=== PATIENT | male | born 1965 | race Caucasian/White ===

== ENCOUNTER 2019-10-02 12:30 | Outpatient (CLI) | payer MEDICARE, SELFPAY ==
[2019-10-02 13:43] LABS: Alanine Aminotransferase 20 U/L (16-63); Alkaline Phosphatase 59 U/L (46-116); Anion Gap 10.1 mmol/L (7-16); Aspartate Amino Transferase 17 U/L (15-37); Bilirubin,Total 0.3 mg/dL (0.00-1.00); Blood Urea Nitrogen 10 mg/dL (7-18); Calcium 8.9 mg/dL (8.5-10.1); Carbon Dioxide 29 mmol/L (21-32); Chloride 104 mmol/L (98-108); Estimated Glomerular Filt Rate > 60; Glucose 106 mg/dL (70-99); Magnesium 2.1 mg/dL (1.8-2.4); Osmolality Calculated 287 mOsm/kg (285-295); Potassium 4.1 mmol/L (3.5-5.1); Sodium 139 mmol/L (136-145); Total Protein 7.1 g/dL (6.4-8.2)
[2019-10-05 11:07] LABS: Vitamin D 25 Hydroxy 30 ng/mL (30-100)
== END 2019-10-02 12:31 | disposition home or self-care (01) ==
PROVIDERS: PCP Nurse Practitioner Family; Visit Provider Nurse Practitioner Family
DX: M79.604 Pain in right leg (principal); M79.605 Pain in left leg; Z79.899 Other long term (current) drug therapy
CPT/HCPCS: 36415; 80053; 82306; 83735

== ENCOUNTER 2020-05-22 09:23 | Outpatient (CLI) | payer MEDICARE, SELFPAY ==
[2020-05-22 10:50] LABS: SARS-CoV-2 RNA PCR Negative (Negative)
== END 2020-05-22 09:24 | disposition home or self-care (01) ==
LOC: CHSLAB 09:26
PROVIDERS: PCP Nurse Practitioner Family; Visit Provider Nurse Practitioner Family
DX: Z20.822 Contact with and (suspected) exposure to COVID-19 (principal)
CPT/HCPCS: C9803; U0003; U0005

== ENCOUNTER 2021-02-22 10:09 | Outpatient (CLI) | payer MEDICARE, SELFPAY ==
[2021-02-22 11:12] LABS: Influenza A QL RT-PCR Negative (Negative); Influenza B QL RT-PCR Negative (Negative); SARS-CoV-2 RNA PCR Negative (Negative)
== END 2021-02-22 10:10 | disposition home or self-care (01) ==
PROVIDERS: PCP Nurse Practitioner Family; Visit Provider Nurse Practitioner Family
DX: R52 Pain, unspecified (principal); Z20.822 Contact with and (suspected) exposure to COVID-19
CPT/HCPCS: 87502; C9803; U0003; U0005

== ENCOUNTER 2021-04-26 15:45 | Emergency (ER) | payer MEDICARE, MEDICAID, SELFPAY ==
[2021-04-26 16:06] VITALS: BP 178/93; PULSE 91; RESP 20; TEMP 36.2; O2SAT 96
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
[2021-04-26] MEDS: KETOROLAC (*BKC) 60 MG/2 ML VIAL IM (16:25)
[2021-04-26] MEDS: ORPHENADRINE CITRATE 100 MG TABLET.ER PO (16:25)
[2021-04-26 16:53] VITALS: BP 120/73; PULSE 85; RESP 20; TEMP 36.6; O2SAT 93
== END 2021-04-26 16:57 | disposition home or self-care (01) ==
PROVIDERS: Emergency Provider Emergency Medicine; PCP Nurse Practitioner Family
DX: M54.32 Sciatica, left side (principal)
CPT/HCPCS: 96372; 99283; A9270; J1885

== ENCOUNTER 2021-04-28 12:03 | Outpatient (CLI) | payer MEDICARE, MEDICAID, SELFPAY ==
--- NOTE | ~2021-04-28 | XR_ITS ---
XR lumbar spine 2-3V 04/28/2021 12:22 Indication: Low back pain Procedure: 3 views lumbar spine Comparison: 11/11/2010 Findings: Vertebral body heights are maintained. Normal lumbar lordosis. No fracture, subluxation or dislocation. Sacral foramen are symmetric. Pedicles intact. No evidence for spondylolisthesis. There is a right total hip arthroplasty. There are right renal stones. There is mild lower lumbar facet hyp ertrophy. Mild disc narrowing at L5-S1. Impression: 1: Mild lumbar spondylosis. Reviewed, dictated and finalized at location A. BW ARCHITECT Impression: 1: Mild lumbar spondylosis.
== END 2021-04-28 12:04 | disposition home or self-care (01) ==
PROVIDERS: PCP Nurse Practitioner Family; Visit Provider Nurse Practitioner Family
DX: M54.32 Sciatica, left side (principal)
CPT/HCPCS: 72100

== ENCOUNTER 2021-05-04 07:16 | Outpatient (CLI) | payer MEDICARE, MEDICAID, SELFPAY ==
--- NOTE | ~2021-05-04 | MR_ITS ---
. EXAMINATION: MR lumbar spine wo con DATE: 05/04/2021 08:01 INDICATION: Left-sided sciatica. TECHNIQUE: Magnetic resonance imaging (MRI) of the lumbar spine was performed without intravenous con trast. Sequences included sagittal T2-weighted FSE, sagittal T2-weighted FS FSE, sagittal T1-weighted FSE, and axial T2-weighted FSE. COMPARISON: Lumbar spine radiographs 04/28/2021 FINDINGS: Bone alignment is normal. There is mild chronic anterior wedging of T11 and T12 vertebral b odies associated with Schmorl's nodes. There is mildly decreased disc height at T11-T12 and T12-L1. T he distal spinal cord signal intensity is normal. The conus medullaris is at T12-L1. The following di sc levels are specifically discussed: L1-L2: The disc does not extend beyond the endplate margin. There is mild bilateral facet joint osteo arthritis. There is no neural foraminal stenosis. There is no central canal stenosis. L2-L3: The disc does not extend beyond the endplate margin. There is mild bilateral facet joint osteo arthritis. There is no neural foraminal stenosis. There is no central canal stenosis. L3-L4: The disc is mildly bulging. There is severe bilateral facet joint osteoarthritis. There is mil d bilateral neural foraminal stenosis. There is no central canal stenosis. L4-L5: The disc does not extend beyond the endplate margin. There is moderate right and mild left fac et joint osteoarthritis. There is no neural foraminal stenosis. There is no central canal stenosis. L5-S1: The disc is bulging with superimposed left central extrusion that enters mass effect on left S 1 nerve root. There is moderate bilateral facet joint osteoarthritis. There is mild bilateral neural foraminal stenosis. There is mild central canal stenosis. There is moderate stenosis of left lateral recess. IMPRESSION: 1. Extrusion at L5-S1 with mass effect on left S1 nerve root. Otherwise mild lumbar spondylosis. Reviewed, dictated and finalized at location A. T OF [employer] SUPERVISOR IMPRESSION: 1. Extrusion at L5-S1 with mass effect on left S1 nerve root. Otherwise mild sandhya mbar spondylosis.
== END 2021-05-04 07:17 | disposition home or self-care (01) ==
LOC: CHSIMG 07:19
PROVIDERS: PCP Nurse Practitioner Family; Visit Provider Nurse Practitioner Family
DX: M54.32 Sciatica, left side (principal); M79.604 Pain in right leg; M79.605 Pain in left leg; M54.50 Low back pain, unspecified
CPT/HCPCS: 72148

== ENCOUNTER 2022-07-16 14:23 | Emergency (ER) | payer MEDICARE, MEDICAID, SELFPAY ==
[2022-07-16] VITALS (56 sets, daily range): BP systolic 117–158; BP diastolic 69–113; PULSE 65–98; RESP 6–28; TEMP 36.7–37.2; O2SAT 95–100
--- NOTE | ~2022-07-16 | XR_ITS ---
EXAMINATION: XR chest 1V portable Exam Date/Time: 07/16/2022 15:04 CDT HISTORY: BILAT CP X3 MONTHS WORSENING TODAY PAIN RADIATES TO LEFT ARM Comparison: 04/10/2018. RESULT: Lines, tubes, and devices: None. Lungs and pleura: Clear. Cardiomediastinal silhouette: Stable. Other: No acute osseous or upper abdominal finding. IMPRESSION: No acute cardiopulmonary process. Reviewed, dictated and finalized at location K.
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
--- NOTE | 2022-07-16 14:28 | ECG_ITS ---
Measurements Intervals [place] Rate: 77 P: 107 MO: 155 QRS: 121 QRSD: 92 T: 109 QT: 380 QTc: 432 Interpretive Statements SINUS RHYTHM ARM LEADS REVERSED INCOMPLETE RIGHT BUNDLE BRANCH BLOCK PEAKED T WAVES- CONSIDER HYPERKALEMIA BASELINE ARTIFACT- I, II, AVR, V1-V2 ABNORMAL ECG COMPARED TO ECG 07/16/2022 14:34:10 PEAKED T WAVES NOW PRESENT ST-T WAVE ABNORMALITY NO LONGER PRESENT Electronically Signed On 07-16-2022 17:56:31 CDT by Brody Virgen D.O.
[2022-07-16] MEDS: ASPIRIN 81 MG CHEWABLE TABLET 324 MG PO (14:36)
[2022-07-16] MEDS: METOPROLOL TARTRATE INJ 5 MG/5 ML VIAL IV PUSH (14:36)
[2022-07-16 14:42] LABS: Basophils Absolute Auto 0.05 K/mm3 (0.00-0.10); Basophils Percent Auto 0.4 % (0.0-1.0); Eosinophils Absolute Auto 0.23 K/mm3 (0.02-0.50); Eosinophils Percent Auto 1.7 % (1.0-6.0); Hematocrit 42.1 % (40.0-54.0); Hemoglobin 14.6 g/dL (14.0-18.0); Immature Granulocyte Absolute 0.06 K/mm3 (0.00-0.00); Immature Granulocyte Percent A 0.4 % (0.0-0.0); Lymphocytes Absolute Auto 2.97 K/mm3 (1.10-4.50); Lymphocytes Percent Auto 21.3 % (18.0-42.0); Mean Corpuscular HGB Conc 34.7 g/dL (32.0-36.0); Mean Corpuscular Hemoglobin 36.5 pg (27.0-31.0); Mean Corpuscular Volume 105.3 fL (78.0-102.0); Mean Platelet Volume 10.5 fl (8.7-11.0); Monocytes Absolute Auto 0.97 K/mm3 (0.10-0.90); Neutrophils Absolute Auto 9.7 K/mm3 (1.7-7.2); Neutrophils Percent Auto 69.2 % (50.0-70.0); Platelet Count Result 167 K/mm3 (150-420); Red Cell Distribution Width 12.6 % (11.6-14.4); White Blood Count 13.9 K/mm3 (4.8-10.8)
[2022-07-16 14:56] LABS: INR 0.9; Partial Thromboplastin Time 27.2 SEC (23.90-30.70); Prothrombin Time 10.1 Seconds (9.50-12.10)
--- NOTE | 2022-07-16 14:56 | PC.NURSE ---
patient arrived, oxygen applied, saline lock established
[2022-07-16 15:03] LABS: Lactic Acid Reflex 1.6 mmol/L (0.4-2.0)
[2022-07-16 15:04] LABS: Alanine Aminotransferase 21 U/L (16-63); Albumin Level 3.9 g/dL (3.4-5.0); Alkaline Phosphatase 48 U/L (46-116); Anion Gap 9 mmol/L (8-16); Aspartate Amino Transferase 13 U/L (15-37); Bilirubin,Total 0.2 mg/dL (0.00-1.00); Blood Urea Nitrogen 19 mg/dL (7-18); Calcium 8.9 mg/dL (8.5-10.1); Carbon Dioxide 28 mmol/L (21-32); Chloride 104 mmol/L (98-108); Creatine Kinase 76 U/L (39-308); Estimated CRCL calculation 56 ml/min; Estimated Glomerular Filt Rate 57; Glucose 108 mg/dL (70-99); NT Pro B Type Natriuretic Pept 1462 pg/mL (0-125); Osmolality Calculated 295 mOsm/kg (285-295); Sodium 141 mmol/L (136-145); Total Protein 6.8 g/dL (6.4-8.2); Troponin I 29.3 ng/L (0.00-60.4)
[2022-07-16 15:14] LABS: D Dimer 0.41 mg/L (0.19-0.50)
[2022-07-16 15:24] LABS: Influenza A QL RT-PCR Negative (Negative); Influenza B QL RT-PCR Negative (Negative); RSV RNA, RT-PCR Negative (Negative); SARS-CoV-2 RNA PCR Negative (Negative)
[2022-07-16 16:30] LABS: Appearance Urine Clear (Clear); Bilirubin Urine Negative (Negative); Blood Urine Negative (Negative); Color Urine Light Yellow (Yellow); Glucose Urine UA Negative (Negative); Ketones Urine Negative (Negative); Leukocyte Esterase Ur Negative LEU/UL (Negative); Nitrate Urine Negative (Negative); Protein Urine Negative (Negative); Specific Grav Ur <= 1.005 (1.010-1.020); Urobilinogen Urine 0.2 mg/dL (0.2-1.0)
[2022-07-16 16:34] LABS: Add Urine Microscopic? NO
--- NOTE | 2022-07-16 17:40 | ECG_ITS ---
Measurements Intervals [place] Rate: 93 P: 73 AK: 149 QRS: 66 QRSD: 97 T: 81 QT: 338 QTc: 421 Interpretive Statements SINUS RHYTHM FREQUENT VENTRICULAR PREMATURE COMPLEXES POSSIBLE LEFT ATRIAL ENLARGEMENT INCOMPLETE RIGHT BUNDLE BRANCH BLOCK ST-T WAVE ABNORMALITY IN ANTEROLAT/INF LEADS- CONSIDER ISCHEMIA BASELINE ARTIFACT- I, II, III, AVR, AVL, AVF ABNORMAL ECG NO PREVIOUS ECG AVAILABLE FOR COMPARISON Electronically Signed On 07-16-2022 17:54:35 CDT by Brody Virgen D.O.
[2022-07-16 17:55] LABS: Troponin I 237.7 ng/L (0.00-60.4)
[2022-07-16] MEDS: HEPARIN SOD/D5W 100 UNITS/ML 25,000 UNITS/250 ML BAG 8 UNITS IV CONT (18:33)
[2022-07-16] MEDS: HEPARIN SODIUM 5,000 UNITS/ML VIAL 4000 UNITS IV PUSH (18:33)
[2022-07-16 21:13] LABS: Troponin I 315.5 ng/L (0.00-60.4)
--- NOTE | 2022-07-16 21:23 | PC.NURSE ---
pt left with heparin drip infusing
== END 2022-07-16 21:24 | disposition short-term general hospital (02) ==
PROVIDERS: Emergency Provider Internal Medicine Critical Care Medicine; PCP Family Medicine
DX: I21.4 Non-ST elevation (NSTEMI) myocardial infarction (principal); N28.9 Disorder of kidney and ureter, unspecified; R06.02 Shortness of breath; E78.5 Hyperlipidemia, unspecified; J44.9 Chronic obstructive pulmonary disease, unspecified; Z21 Asymptomatic human immunodeficiency virus [HIV] infection status; Z79.899 Other long term (current) drug therapy; Z79.51 Long term (current) use of inhaled steroids; F32.A Depression, unspecified; Z87.891 Personal history of nicotine dependence; Z87.81 Personal history of (healed) traumatic fracture
CPT/HCPCS: 36415; 71045; 80053; 81003; 82550; 83605; 83880; 84484; 85025; 85380; 85610; 85730; 87637; 93005; 96365; 96366; 96375; 99285; A9270; J1644

== ENCOUNTER 2022-07-16 22:05 | Inpatient (IN) | payer MEDICARE, MEDICAID, SELFPAY ==
--- NOTE | 2022-07-16 21:55 | ADMGEN ---
This patient, Lilia Renee, was admitted to IMU Room 211-01. Patient/family oriented to hospital policies and general routines including ID bracelet, bed and alarms, visiting hours, pain management, procedures, bathroom and other care routines, personal items, smoking policy, room service/diet, and visiting hours. Information on how to activate the Rapid Response Team has been discussed. Patient/Family are encouraged to report perceived risks to care and to ask questions if they do not understand what they are told or what they should do.
[2022-07-16 22:05] VITALS: BP 156/76; PULSE 77; RESP 20; TEMP 36.3; O2SAT 100
[2022-07-16 22:23] VITALS: PULSE 82
[2022-07-16 22:35] VITALS: BMI 22.4
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
[2022-07-16] MEDS: MIRTAZAPINE 30 MG TABLET PO (23:35)
[2022-07-16] MEDS: DULoxetine HCL 60 MG CAPSULE.DR PO (23:35)
[2022-07-16] MEDS: ROSUVASTATIN 10 MG TABLET 20 MG PO (23:36)
[2022-07-16] MEDS: QUEtiapine FUMARATE 100 MG TABLET PO (23:36)
[2022-07-16] MEDS: HEPARIN SOD/D5W 100 UNITS/ML 25,000 UNITS/250 ML BAG 8 UNITS IV CONT (23:39)
[2022-07-16] MEDS: ALPRAZolam (*CRX) 0.5 MG TABLET 1 MG PO (23:39)
[2022-07-16 23:56] LABS: Troponin I 0.232 ng/mL (0.000-0.034)
[2022-07-17] VITALS (17 sets, daily range): BP systolic 121–144; BP diastolic 71–78; PULSE 64–91; RESP 16–20; TEMP 36.1–36.8; O2SAT 96–100
[2022-07-17 01:15] LABS: Basophils Percent Auto 0.4 % (0.2-1.2); Eosinophils Absolute Auto 0.1 K/mm3 (0-0.3); Eosinophils Percent Auto 1.3 % (0-4.4); Hematocrit 42.3 % (42.0-52.0); Hemoglobin 14.5 g/dL (14.0-18.0); Immature Granulocyte Absolute 0.04 K/mm3 (0.00-0.031); Immature Granulocyte Percent A 0.4 % (0-0.5); Lymphocytes Absolute Auto 1.93 K/mm3 (0.9-3.2); Lymphocytes Percent Auto 21.7 % (18.3-44.2); Mean Corpuscular HGB Conc 34.3 g/dl (32-36); Mean Platelet Volume 10.1 fl (7.4-10.4); Monocytes Absolute Auto 0.4 K/mm3 (0.1-0.6); Monocytes Percent Auto 4.6 % (2.6-8.5); Neutrophils Absolute Auto 6.4 K/mm3 (1.3-6.7); Neutrophils Percent Auto 71.6 % (45.5-73.1); Platelet Count Result 151 k/mm3 (150-375); Red Blood Count 4.03 M/mm3 (4.6-6.20); Red Cell Distribution Width 12.9 % (11.5-14.5); White Blood Count 8.9 K/mm3 (4.5-10.0)
[2022-07-17 01:27] LABS: INR 0.9; Prothrombin Time 12.7 Seconds (11.1-14.7)
[2022-07-17 01:28] LABS: Partial Thromboplastin Time 52.1 SECONDS (22.3-36.8)
[2022-07-17] MEDS: HEPARIN SODIUM 5,000 UNITS/ML VIAL 4000 UNITS IV PUSH (01:43)
[2022-07-17 02:39] LABS: Folic Acid 13.8 ng/mL (2.76->20)
[2022-07-17 07:44] LABS: Basophils Percent Auto 0.5 % (0.2-1.2); Eosinophils Absolute Auto 0.2 K/mm3 (0-0.3); Eosinophils Percent Auto 2.8 % (0-4.4); Hematocrit 42.7 % (42.0-52.0); Hemoglobin 14.6 g/dL (14.0-18.0); Immature Granulocyte Absolute 0.03 K/mm3 (0.00-0.031); Immature Granulocyte Percent A 0.4 % (0-0.5); Lymphocytes Absolute Auto 2.56 K/mm3 (0.9-3.2); Lymphocytes Percent Auto 32.2 % (18.3-44.2); Mean Corpuscular HGB Conc 34.2 g/dl (32-36); Mean Corpuscular Hemoglobin 36.4 pg (26-34); Mean Corpuscular Volume 106.5 fl (80-100); Mean Platelet Volume 9.8 fl (7.4-10.4); Monocytes Absolute Auto 0.6 K/mm3 (0.1-0.6); Monocytes Percent Auto 7.3 % (2.6-8.5); Neutrophils Absolute Auto 4.5 K/mm3 (1.3-6.7); Neutrophils Percent Auto 56.8 % (45.5-73.1); Platelet Count Result 147 k/mm3 (150-375); Red Blood Count 4.01 M/mm3 (4.6-6.20)
[2022-07-17 07:55] LABS: Alanine Aminotransferase 18 U/L (6-50); Albumin Level 3.9 g/dL (3.5-5.1); Alkaline Phosphatase 40 U/L (38-126); Anion Gap 1 mmol/L (8-16); Aspartate Amino Transferase 22 U/L (17-59); Bilirubin,Total 0.5 mg/dL (0.2-1.3); Blood Urea Nitrogen 15 mg/dL (9-20); Calcium 8.5 mg/dL (8.4-10.2); Carbon Dioxide 31 mmol/L (22-30); Chloride 108 mmol/L (98-107); Cholesterol 137 mg/dL (0-200); Estimated CRCL calculation 75 ml/min; Estimated Glomerular Filt Rate > 60; Glucose 101 mg/dL (65-110); HDL Direct 44 mg/dL; Magnesium 2.2 mg/dL (1.6-2.3); Potassium 3.9 mmol/L (3.4-5.0); Sodium 140 mmol/L (137-145); Triglycerides 74 mg/dL (<150)
[2022-07-17 08:05] LABS: LDL Cholesterol Direct 79 mg/dL
[2022-07-17 08:12] LABS: Partial Thromboplastin Time 172.1 SECONDS (22.3-36.8)
[2022-07-17] MEDS: METOPROLOL TARTRATE 25 MG TABLET PO ×2 (09:59→20:33)
[2022-07-17] MEDS: MULTIVITAMINS /C LUTEIN (CENTRUM SILVER) TABLET *BKC 1 TAB PO (10:00)
[2022-07-17] MEDS: ACETAMINOPHEN 325 MG TABLET 650 MG PO (10:00)
[2022-07-17] MEDS: DULoxetine HCL 60 MG CAPSULE.DR PO ×2 (10:00→16:46)
[2022-07-17] MEDS: QUEtiapine FUMARATE 100 MG TABLET PO ×2 (10:01→16:46)
[2022-07-17] MEDS: ALPRAZolam (*CRX) 0.5 MG TABLET 1 MG PO ×4 (10:01→20:33)
[2022-07-17] MEDS: ASPIRIN 81 MG ENTERIC TABLET PO (10:02)
--- NOTE | 2022-07-17 11:19 | ECG_ITS ---
Measurements Intervals [place] Rate: 71 P: 77 HI: 153 QRS: 63 QRSD: 91 T: 62 QT: 388 QTc: 422 Interpretive Statements SINUS RHYTHM POSSIBLE LEFT ATRIAL ENLARGEMENT RSR' IN V1 OR V2, PROBABLY NORMAL VARIANT BORDERLINE ECG COMPARED TO ECG 07/16/2022 17:39:19 NO SIGNIFICANT CHANGES Electronically Signed On 07-17-2022 21:56:54 CDT by Brody Virgen D.O.
--- NOTE | 2022-07-17 11:21 | PM.CNCAR ---
Assessment and Plan Assessment and plan (1) Non-ST elevation [place] (NSTEMI): Code(s): I21.4 - Non-ST elevation (NSTEMI) myocardial infarction Status: Acute Assessment and Plan: Symptoms are consistent with a non ST elevation myocardial infarction. EKG is concerning as he has inferior and anterolateral ST segment depression. He is pain-free at present however and plan will be for cardiac catheterization tomorrow. I did talk to him about the coronary angiogram and he verbalized understanding and is agreeable. Will be kept NPO after midnight. Will continue heparin drip. Continue metoprolol 25 mg p.o. b.i.d.. Continue rosuvastatin, aspirin. Nitroglycerin 0.4 mg sublingual p.r.n. chest pain will be added. Also will add losartan 25 mg p.o. daily as he does have elevated blood pressure present also. Renal function has improved. Further workup recommendation will be dependent on results of the angiogram. 2D echocardiogram Doppler is ordered also. Will also order an EKG now as well as repeat troponin (2) Dyslipidemia: Code(s): E78.5 - Hyperlipidemia, unspecified Status: Acute Assessment and Plan: Continue statin (3) Human immunodeficiency virus: Onset Date: 2003 Code(s): B20 - Human immunodeficiency virus [HIV] disease Status: Acute Assessment and Plan: Followed at [facility] (4) Chronic obstructive pulmonary disease: Code(s): J44.9 - Chronic obstructive pulmonary disease, unspecified Status: Acute Assessment and Plan: Related to tobacco use (5) Nicotine dependence: Code(s): F17.200 - Nicotine dependence, unspecified, uncomplicated Status: Chronic Assessment and Plan: Smoking cessation counseling performed (6) Renal insufficiency: Code(s): N28.9 - Disorder of kidney and ureter, unspecified Status: Acute Assessment and Plan: Normalized creatinine today History of Present Illness History of Present Illness Consult date/time: 07/17/22 11:21 Requesting physician: Mariola Muñiz PA-C Reason For Visit: NSTEMI Narrative: Date of service 07/17/2022 Reason consultation non-STEMI Requesting provider: Mariola Muñiz History patient is a 56-year-old male who does not have known cardiac history. He does have COPD, hyperlipidemia, HIV, anxiety depression as well as tobacco use. He has been having some neck pain off and on since April. It has become more severe as of late. Yesterday however he started to have some anterior chest pain associated with the neck pain. His symptoms were associated with shortness of breath and some diaphoresis. He did have some arm numbness and tingling also. His symptoms lasted about 1-2 hours and he went to the emergency department and [place]. Initial troponins were elevated and he was transferred to [facility] further workup and evaluation. He was started on heparin drip. He no longer is having any chest pain. He denies any recent syncope, presyncope, paroxysmal nocturnal dyspnea, orthopnea, edema palpitations. No unusual shortness of breath at this point. Review of Systems Review of Systems: All systems reviewed & are unremarkable except as noted in HPI and below Constitutional: Constitutional: Denies body ache(s) Eyes: Eyes: Denies blurry vision ENT: Reports Normal hearing present Cardiovascular: Cardiovascular: Reports chest pain Respiratory: Respiratory: Denies chest congestion Gastrointestinal: Gastrointestinal: Denies abdominal pain Genitourinary: Genitourinary: Denies hematuria Musculoskeletal: Musculoskeletal: Denies back pain Integumentary/Breasts: Skin/Breast: Denies erythema and Denies skin pain Neurologic: Denies abnormal gait Psychiatric: Psychiatric: Reports anxiety and Reports depression Endocrine: Endocrine: Denies excessive sweating Hematologic/Lymphatic: Hematologic/Lymphatic: Denies easy bleeding Allergic/Immunologic: Allerg
--- NOTE | 2022-07-17 12:14 | PM.IMPN ---
Progress Note: A&P Assessment and Plan (1) Non-ST elevation NV (NSTEMI): Code(s): I21.4 - Non-ST elevation (NSTEMI) myocardial infarction Status: Acute Assessment and Plan: Initial troponin was negative but has trended upwards. EKG at outside facility was read as sinus rhythm with PVCs, incomplete right bundle-branch block, and T T-wave abnormalities in anterolateral/inferior leads. He was given aspirin 324 mg p.o., IV metoprolol, and he has been started on heparin drip. Dr. Wallace was consulted by the outside ED physician and his input is appreciated. (2) Renal insufficiency: Code(s): N28.9 - Disorder of kidney and ureter, unspecified Status: Acute Assessment and Plan: BUN and creatinine are slightly elevated from baseline. Hold ibuprofen and meloxicam. (3) Dyslipidemia: Code(s): E78.5 - Hyperlipidemia, unspecified Status: Acute Assessment and Plan: Continue rosuvastatin. (4) Human immunodeficiency virus: Onset Date: 2003 Code(s): B20 - Human immunodeficiency virus [HIV] disease Status: Acute Assessment and Plan: Patient may take Genvoya from home. (5) Depression with anxiety: Code(s): F41.8 - Other specified anxiety disorders Status: Acute Assessment and Plan: Continue quetiapine, duloxetine, and alprazolam. (6) Chronic obstructive pulmonary disease: Code(s): J44.9 - Chronic obstructive pulmonary disease, unspecified Status: Acute Assessment and Plan: No evidence of acute exacerbation. Rescue inhaler available if needed. (7) Nicotine dependence: Code(s): F17.200 - Nicotine dependence, unspecified, uncomplicated Status: Chronic Assessment and Plan: Smoking cessation is encouraged and was discussed. He declines the need for nicotine patch. Plan 07/17/2022:Patient with COPD hypertension hyperlipidemia anxiety depression HIV history of kidney stones presented with non ST-elevation NV. associated chest pain radiated to the neck and jaw. Stress test done 2 days ago however has not received the results yet. Initial troponin was negative however then subsequent levels trended up. Aspirin 325 mg metoprolol and heparin drip was started. EKG with ST depression in anterolateral and inferior leads. Plan for cardiac catheterization in a.m.. Hypertension controlled with losartan added to metoprolol. Continue rosuvastatin check LDL. [facility]s [facility] disease. Smoking cessation emphasized.. Chest x-ray with no acute cardiopulmonary disease. Subjective Date/time seen: 07/17/22 12:14 Interval history: Patient with COPD hypertension hyperlipidemia anxiety depression HIV history of kidney stones presented with non ST-elevation NV. associated chest pain radiated to the neck and jaw. Stress test done 2 days ago however has not received the results yet. Initial troponin was negative however then subsequent levels trended up. Aspirin 325 mg metoprolol and heparin drip was started. EKG with ST depression in anterolateral and inferior leads. Plan for cardiac catheterization in a.m.. Hypertension controlled with losartan added to metoprolol. Continue rosuvastatin check LDL. Follows [facility] for HIV disease. Smoking cessation emphasized.. Chest x-ray with no acute cardiopulmonary disease. Review of Systems Review of Systems: All systems reviewed & are unremarkable except as noted in HPI and below Exam Narrative: General: A well-developed, nontoxic-appearing male supine in bed. HEENT: Normocephalic, atraumatic. PERRL, EOMI. Sclera anicteric. Oral mucosa moist. Neck: Supple. Nontender Respiratory: Lungs are clear to auscultation bilaterally. No respiratory distress Cardiovascular: Regular rate and rhythm with S1-S2. Chest: No tenderness to palpation over the chest wall. Gastrointestinal: Abdomen is soft, flat, nontender, and nondistended with positive b
[2022-07-17 12:52] LABS: Troponin I 0.271 ng/mL (0.000-0.034)
[2022-07-17] MEDS: LOSARTAN POTASSIUM 25 MG TABLET PO (13:52)
[2022-07-17 16:15] LABS: Partial Thromboplastin Time 58.3 SECONDS (22.3-36.8)
[2022-07-17] MEDS: HEPARIN SODIUM 5,000 UNITS/ML VIAL 2500 UNITS IV PUSH (16:48)
[2022-07-17] MEDS: ROSUVASTATIN 10 MG TABLET 20 MG PO (20:32)
[2022-07-17] MEDS: MIRTAZAPINE 30 MG TABLET PO (20:33)
[2022-07-17 23:18] LABS: Partial Thromboplastin Time 104.4 SECONDS (22.3-36.8)
[2022-07-18] VITALS (39 sets, daily range): BP systolic 110–184; BP diastolic 61–115; PULSE 54–85; RESP 12–24; TEMP 36.3–37.1; O2SAT 94–100
[2022-07-18] MEDS: HEPARIN SOD/D5W 100 UNITS/ML 25,000 UNITS/250 ML BAG 10 UNITS IV CONT (01:58)
[2022-07-18 05:08] LABS: Basophils Absolute Auto 0.1 K/mm3 (0.0-0.1); Basophils Percent Auto 0.8 % (0.2-1.2); Eosinophils Absolute Auto 0.2 K/mm3 (0-0.3); Eosinophils Percent Auto 3.3 % (0-4.4); Hematocrit 46.9 % (42.0-52.0); Hemoglobin 16.3 g/dL (14.0-18.0); Immature Granulocyte Absolute 0.02 K/mm3 (0.00-0.031); Immature Granulocyte Percent A 0.3 % (0-0.5); Lymphocytes Absolute Auto 2.96 K/mm3 (0.9-3.2); Lymphocytes Percent Auto 40.4 % (18.3-44.2); Mean Corpuscular HGB Conc 34.8 g/dl (32-36); Mean Corpuscular Hemoglobin 36.9 pg (26-34); Mean Corpuscular Volume 106.1 fl (80-100); Mean Platelet Volume 10.2 fl (7.4-10.4); Monocytes Absolute Auto 0.7 K/mm3 (0.1-0.6); Monocytes Percent Auto 8.9 % (2.6-8.5); Neutrophils Absolute Auto 3.4 K/mm3 (1.3-6.7); Neutrophils Percent Auto 46.3 % (45.5-73.1); Platelet Count Result 155 k/mm3 (150-375); Red Blood Count 4.42 M/mm3 (4.6-6.20); Red Cell Distribution Width 13.2 % (11.5-14.5); White Blood Count 7.3 K/mm3 (4.5-10.0)
[2022-07-18 05:17] LABS: Partial Thromboplastin Time 90.3 SECONDS (22.3-36.8)
[2022-07-18 05:22] LABS: Alanine Aminotransferase 20 U/L (6-50); Albumin Level 4.3 g/dL (3.5-5.1); Alkaline Phosphatase 48 U/L (38-126); Anion Gap 4 mmol/L (8-16); Aspartate Amino Transferase 22 U/L (17-59); Bilirubin,Total 0.6 mg/dL (0.2-1.3); Blood Urea Nitrogen 14 mg/dL (9-20); Calcium 8.6 mg/dL (8.4-10.2); Carbon Dioxide 30 mmol/L (22-30); Chloride 106 mmol/L (98-107); Estimated CRCL calculation 68 ml/min; Estimated Glomerular Filt Rate > 60; Glucose 104 mg/dL (65-110); Magnesium 2.4 mg/dL (1.6-2.3); Potassium 4.3 mmol/L (3.4-5.0); Sodium 140 mmol/L (137-145)
[2022-07-18] MEDS: MULTIVITAMINS /C LUTEIN (CENTRUM SILVER) TABLET *BKC 1 TAB PO (08:55)
[2022-07-18] MEDS: QUEtiapine FUMARATE 100 MG TABLET PO ×2 (08:55→17:58)
[2022-07-18] MEDS: METOPROLOL TARTRATE 25 MG TABLET PO ×2 (08:55→20:43)
[2022-07-18] MEDS: LOSARTAN POTASSIUM 25 MG TABLET PO (08:55)
[2022-07-18] MEDS: DULoxetine HCL 60 MG CAPSULE.DR PO ×2 (08:55→17:58)
[2022-07-18] MEDS: ASPIRIN 81 MG ENTERIC TABLET PO (08:55)
--- NOTE | 2022-07-18 09:08 | WPDMODSED ---
Moderate Sedation Note-Pt Data Patient Data Diagnosis: New onset ischemic chest pain Present Complaint: exertional chest pain Procedure to be performed/Plan: left heart catheterization Allergies Allergy/AdvReac Type Severity Reaction Status Date / Time codeine Allergy Intermediate nausea Verified 08/24/21 08:19 Sulfonamides Allergy Severe anaphylaxis Uncoded 08/24/21 08:19 Home Medications Medication Instructions Recorded Confirmed Type elviteg 150 mg-cob 150 mg-emtricit 1 tablet PO DAILY 05/30/19 07/16/22 History 200 mg-tenofo alafenam 10 mg tablet (Genvoya) albuterol sulfate 90 mcg/actuation 2 puff inhalation Q4H PRN 10/02/19 07/16/22 History aerosol inhaler Shortness Of Breath ondansetron 4 mg disintegrating 4 mg PO Q8H PRN nausea and 05/12/21 07/16/22 Rx tablet vomiting #14 tabs alprazolam 1 mg tablet 1 mg PO QID 07/16/22 07/16/22 History duloxetine 60 mg capsule,delayed 60 mg PO BID 07/16/22 07/16/22 History release fluticasone propionate 50 1 spray intranasal DAILY PRN 07/16/22 07/16/22 History mcg/actuation nasal allergies spray,suspension ibuprofen 200 mg tablet 200 mg PO BID 07/16/22 07/16/22 History meloxicam 15 mg tablet 15 mg PO DAILY 07/16/22 07/16/22 History mirtazapine 30 mg tablet 30 mg PO HS 07/16/22 07/16/22 History multivit with minerals-iron 18 1 tablet PO DAILY 07/16/22 07/16/22 History mg-folic ac 400 mcg-vit K 25 mcg tablet (Adults Multivitamin) quetiapine 100 mg tablet 100 mg PO BID 07/16/22 07/16/22 History rosuvastatin 20 mg tablet 20 mg PO HS 07/16/22 07/16/22 History Current Medications: Active Medications Acetaminophen (Acetaminophen 325 Mg Tablet) 650 mg PO Q4H PRN PRN Reason: Mild Pain (1-3) or Fever Last Admin: 07/17/22 10:00 Dose: 650 mg Albuterol (Albuterol Sulfate (*Sp) Aerosol 1 Puff) 2 puff INHALATION Q4H PRN PRN Reason: Shortness Of Breath Alprazolam (Alprazolam (*Crx) 0.5 Mg Tablet) 1 mg PO QID [facility] Last Admin: 07/18/22 08:57 Dose: Not Given Aspirin (Aspirin 81 Mg Enteric Tablet) 81 mg PO QAM [facility] Last Admin: 07/18/22 08:55 Dose: 81 mg Duloxetine HCl (Duloxetine Hcl 60 Mg Capsule.Dr) 60 mg PO BID [facility] Last Admin: 07/18/22 08:55 Dose: 60 mg Fluticasone Propionate (Fluticasone Propionate 0.05% Na Spr 16 Gm Btl (*Bkc)) 1 spray NASAL DAILY PRN PRN Reason: allergies Heparin Sodium (Porcine) (Heparin Sodium 5,000 Units/Ml Vial) 2,500 units IV PUSH PRN PRN PRN Reason: aPTT 55 - 70 seconds Last Admin: 07/17/22 16:48 Dose: 2,500 units Heparin Sodium (Porcine) (Heparin Sodium 5,000 Units/Ml Vial) 4,000 units IV PUSH PRN PRN PRN Reason: aPTT less than 55 seconds Last Admin: 07/17/22 01:43 Dose: 4,000 units Heparin Sodium/Dextrose (Heparin Sodium/D5w 100 Units/Ml) 25,000 units in 250 mls @ 9 mls/hr IV CONT .Q24H [facility]; Protocol Last Titration: 07/18/22 05:29 Dose: 1,000 units/hr, 10 mls/hr Losartan Potassium (Losartan Potassium 25 Mg Tablet) 25 mg PO DAILY [facility] Last Admin: 07/18/22 08:55 Dose: 25 mg Metoprolol Tartrate (Metoprolol Tartrate 25 Mg Tablet) 25 mg PO Q12HR [facility] Last Admin: 07/18/22 08:55 Dose: 25 mg Mirtazapine (Mirtazapine 30 Mg Tablet) 30 mg PO HS [facility] Last Admin: 07/17/22 20:33 Dose: 30 mg Miscellaneous Information (Med Rec Order Clarification) 1 each XX CLARIFY [facility] Stop: 08/15/22 00:00 Last Admin: 07/18/22 00:14 Dose: Not Given Multivitamins/Minerals (Multivitamins /C Lutein (Centrum Silver) Tablet *Bkc) 1 tab PO DAILY [facility] Last Admin: 07/18/22 08:55 Dose: 1 tab Non-Formulary Medication (Huxfuum-Hjj-Mtzkj-Tenof Alafen [Genvoya]) 1 tablet PO DAILY [facility] Stop: 08/16/22 08:59 Perflutren Lipid Microsphere (Perflutren Lipid Microspheres 1.5 Ml Vial Diluted To 10 Ml Total Volume) 0 ml IV PUSH ONCE PRN; Protocol PRN Reason: adequate visualization Stop: 07/18/22 23:43 Quetiapine Fumarate (Quetiapine Fumarate 100 Mg Tablet) 100 mg PO BID [facility] Last Admin: 07/18/22 08:55 Dose: 100 mg
--- NOTE | 2022-07-18 10:15 | ECG_ITS ---
Measurements Intervals Warren Rate: 68 P: 73 RI: 157 QRS: 61 QRSD: 102 T: 63 QT: 394 QTc: 421 Interpretive Statements SINUS RHYTHM POSSIBLE RIGHT ATRIAL ENLARGEMEN TALL T-WAVES, SUGGESTS HYPERKALEMIA ABNORMAL ECG COMPARED TO ECG 07/17/2022 14:28:10 PEAKED T WAVES NOW PRESENT Electronically Signed On 07-18-2022 11:37:15 CDT by Brody Virgen D.O.
--- NOTE | 2022-07-18 10:18 | WPDCARDPROC ---
Cardiac Cath Procedure Note Date of procedure:: 07/18/22 Performing physician:: Mick Marie MD Indication:: acute coronary syndrome Brief clinical history:: this is a 56-year-old man with a history of smoking and no previous documented coronary history. He presents to the hospital over the weekend with intermittent ischemic chest pain associated with a ischemic ST segment depression. In this setting angiography has been recommended. Procedure Procedure performed:: Left ventriculogram coronary angiogram PCI (KRIS) to proximal circumflex Sedation/Medication given:: fentanyl 50 mg Versed 2 mg case start time 9:24 a.m. case end time 10:10 a.m. sedation provided by Jinny Gordon RN, trained observer Access site:: left femoral artery Estimated blood loss:: 50 cc Procedure note:: patient was brought to the cardiac catheterization lab in the postabsorptive state the right and left femoral triangles were prepared and draped in the usual fashion. There was a very poor pulse in the right groin the left groin was also diminished but had a better palpable pulse for this reason the 1% lidocaine was injected in the left femoral triangle and using the modified Seldinger technique the femoral artery was punctured and a 5 Guinean vascular sheath was placed. I did have to puncture the artery several times and ultimately used a Dontrell wire to access the central aorta. All catheter exchanges then took place over the guidewire with catheter in the thoracic aorta. Initially of 5 Guinean angled pigtail catheter was used to measure left-sided hemodynamics and to inject left ventriculogram in the 30 degree CONNOLLY projection. Following this I used a standard 5 [place] FL4 catheter to engage and inject the left coronary 5 Guinean JR4 catheter to engage inject the right coronary artery. Cineangiograms were then reviewed and PCI of the circumflex was recommended and carried out as detailed below. Prior to PCI over a guidewire the 5 Guinean sheath was exchanged for a 6 Guinean sheath. The patient received clopidogrel 600 mg orally and then also was loaded and infused with Angiomax for this PCI. He had received aspirin on admission yesterday and this morning was given no additional aspirin during this procedure. Following PCI as described below the sheath was sutured into position the patient taken to the holding area for recovery and sheath removal. Procedure was well tolerated and uncomplicated there was no evidence of groin hematoma when he left the cardiac catheterization lab. Findings:: Hemodynamics: Central aortic pressure is 140 over 76 left ventricle 140 over to end-diastolic 15 there is no gradient on pullback across the aortic valve left ventricle: The LV is normal in size. In the CONNOLLY projection all segments appropriately the global ejection fraction I would visually estimate to be 50%. The left main coronary artery is patent short and small in caliber for a gentleman like this. The left main is patent. The left anterior descending is a medium caliber artery extending down to the apex. There is minimal plaquing in the mid LAD but there are no flow-limiting lesions identified. The circumflex is a smaller caliber vessel for a gentleman. There is a 99% stenosis in the proximal circumflex that is at least 15 mm in length. The circumflex in general is relatively small. The right coronary artery is dominant to the posterior circulation it is a medium caliber artery. There is mild 60-70% stenosis in the midportion of the RCA. Intervention: The left coronary artery was initially engaged using a 6 Guinean CLS 3.5 catheter which resulted in unacceptable damping and ventricularization the pressure. I then changed to a 6 [place] CLS 3.0 catheter which engaged the artery more satisfactorily and resulted in much less pressure damping. The lesion was then crossed fairly easily using a 0.014 BMW coronary guidewire. I used a 2.0 x
[2022-07-18] MEDS: HYDROcodone/acetaminophen (*CRX) 5-325 MG TABLET 1 TAB PO (13:40)
[2022-07-18] MEDS: SODIUM CHLORIDE 0.9% IV 1,000 ML 125 ML IV CONT (13:40)
[2022-07-18] MEDS: ALPRAZolam (*CRX) 0.5 MG TABLET 1 MG PO ×2 (17:57→20:42)
--- NOTE | 2022-07-18 18:04 | PM.IMPN ---
Progress Note: A&P Assessment and Plan (1) Non-ST elevation ME (NSTEMI): Code(s): I21.4 - Non-ST elevation (NSTEMI) myocardial infarction Status: Acute Assessment and Plan: Initial troponin was negative but has trended upwards. EKG at outside facility was read as sinus rhythm with PVCs, incomplete right bundle-branch block, and T T-wave abnormalities in anterolateral/inferior leads. He was given aspirin 324 mg p.o., IV metoprolol, and he has been started on heparin drip. Dr. Wallace was consulted by the outside ED physician and his input is appreciated. (2) Renal insufficiency: Code(s): N28.9 - Disorder of kidney and ureter, unspecified Status: Acute Assessment and Plan: BUN and creatinine are slightly elevated from baseline. Hold ibuprofen and meloxicam. (3) Dyslipidemia: Code(s): E78.5 - Hyperlipidemia, unspecified Status: Acute Assessment and Plan: Continue rosuvastatin. (4) Human immunodeficiency virus: Onset Date: 2003 Code(s): B20 - Human immunodeficiency virus [HIV] disease Status: Acute Assessment and Plan: Patient may take Genvoya from home. (5) Depression with anxiety: Code(s): F41.8 - Other specified anxiety disorders Status: Acute Assessment and Plan: Continue quetiapine, duloxetine, and alprazolam. (6) Chronic obstructive pulmonary disease: Code(s): J44.9 - Chronic obstructive pulmonary disease, unspecified Status: Acute Assessment and Plan: No evidence of acute exacerbation. Rescue inhaler available if needed. (7) Nicotine dependence: Code(s): F17.200 - Nicotine dependence, unspecified, uncomplicated Status: Chronic Assessment and Plan: Smoking cessation is encouraged and was discussed. He declines the need for nicotine patch. Plan 07/17/2022:Patient with COPD hypertension hyperlipidemia anxiety depression HIV history of kidney stones presented with non ST-elevation ME. associated chest pain radiated to the neck and jaw. Stress test done 2 days ago however has not received the results yet. Initial troponin was negative however then subsequent levels trended up. Aspirin 325 mg metoprolol and heparin drip was started. EKG with ST depression in anterolateral and inferior leads. Plan for cardiac catheterization in a.m.. Hypertension controlled with losartan added to metoprolol. Continue rosuvastatin check LDL. [facility]s [facility] for [facility] disease. Smoking cessation emphasized.. Chest x-ray with no acute cardiopulmonary disease. 07/18/2022: Patient with COPD hypertension hyperlipidemia anxiety depression HIV history of kidney stones presented with non ST-elevation ME associated chest pain radiate to the neck and jaw. Stress test done 2 days ago however has not received the results yet. Initial troponin was negative however the subsequent level trended up. Aspirin 325 mg metoprolol and heparin drip was started. EKG with ST depression in anterolateral and inferior leads. Cardiology was consulted. Hypertension control with losartan added to metoprolol. Rosuvastatin check LDL is 79. Follows [facility] for HIV disease. Smoking cessation emphasized. Chest x-ray with no acute cardiopulmonary disease. Cardiac catheterization on 07/18/2022: Right coronary dominant circulation with 2 vessel coronary artery disease subtotal occlusion of proximal circumflex and moderate stenosis in the 2nd portion of RCA. Circumflex lesion treated with stent placement. Aspirin Plavix. Statin and beta-princess Subjective Date/time seen: 07/18/22 18:04 Interval history: Patient with COPD hypertension hyperlipidemia anxiety depression HIV history of kidney stones presented with non ST-elevation ME. associated chest pain radiated to the neck and jaw. Stress test done 2 days ago however has not received the results yet. Initial troponin was negative however then subsequent leve
[2022-07-18] MEDS: ROSUVASTATIN 10 MG TABLET 20 MG PO (20:42)
[2022-07-18] MEDS: MIRTAZAPINE 30 MG TABLET PO (20:43)
[2022-07-19] VITALS (9 sets, daily range): BP systolic 135–172; BP diastolic 61–84; PULSE 61–80; RESP 18; TEMP 36.3–36.7; O2SAT 100
[2022-07-19 05:05] LABS: Basophils Percent Auto 0.3 % (0.2-1.2); Eosinophils Absolute Auto 0.3 K/mm3 (0-0.3); Eosinophils Percent Auto 3.5 % (0-4.4); Hematocrit 44.9 % (42.0-52.0); Hemoglobin 15.2 g/dL (14.0-18.0); Immature Granulocyte Absolute 0.03 K/mm3 (0.00-0.031); Immature Granulocyte Percent A 0.3 % (0-0.5); Lymphocytes Absolute Auto 2.13 K/mm3 (0.9-3.2); Lymphocytes Percent Auto 23.4 % (18.3-44.2); Mean Corpuscular HGB Conc 33.9 g/dl (32-36); Mean Corpuscular Hemoglobin 35.4 pg (26-34); Mean Corpuscular Volume 104.7 fl (80-100); Monocytes Absolute Auto 0.8 K/mm3 (0.1-0.6); Monocytes Percent Auto 8.4 % (2.6-8.5); Neutrophils Absolute Auto 5.8 K/mm3 (1.3-6.7); Neutrophils Percent Auto 64.1 % (45.5-73.1); Platelet Count Result 149 k/mm3 (150-375); Red Blood Count 4.29 M/mm3 (4.6-6.20); Red Cell Distribution Width 12.8 % (11.5-14.5); White Blood Count 9.1 K/mm3 (4.5-10.0)
[2022-07-19 05:17] LABS: Alanine Aminotransferase 19 U/L (6-50); Albumin Level 4.1 g/dL (3.5-5.1); Alkaline Phosphatase 44 U/L (38-126); Anion Gap 4 mmol/L (8-16); Aspartate Amino Transferase 22 U/L (17-59); Bilirubin,Total 0.7 mg/dL (0.2-1.3); Blood Urea Nitrogen 13 mg/dL (9-20); Calcium 8.5 mg/dL (8.4-10.2); Carbon Dioxide 28 mmol/L (22-30); Chloride 107 mmol/L (98-107); Estimated CRCL calculation 74 ml/min; Estimated Glomerular Filt Rate > 60; Glucose 102 mg/dL (65-110); Magnesium 2.2 mg/dL (1.6-2.3); Sodium 139 mmol/L (137-145)
[2022-07-19 06:16] LABS: Partial Thromboplastin Time 29.8 SECONDS (22.3-36.8)
[2022-07-19] MEDS: ALPRAZolam (*CRX) 0.5 MG TABLET 1 MG PO (08:27)
[2022-07-19] MEDS: CLOPIDOGREL BISULFATE 75 MG TABLET PO (08:30)
[2022-07-19] MEDS: ASPIRIN 81 MG ENTERIC TABLET PO (08:30)
[2022-07-19] MEDS: DULoxetine HCL 60 MG CAPSULE.DR PO (08:30)
[2022-07-19] MEDS: METOPROLOL TARTRATE 25 MG TABLET PO (08:31)
[2022-07-19] MEDS: LOSARTAN POTASSIUM 25 MG TABLET PO (08:31)
[2022-07-19] MEDS: MULTIVITAMINS /C LUTEIN (CENTRUM SILVER) TABLET *BKC 1 TAB PO (08:32)
[2022-07-19] MEDS: QUEtiapine FUMARATE 100 MG TABLET PO (08:33)
--- NOTE | 2022-07-19 11:06 | PM.PNCARD ---
Progress Note: A&P Assessment and Plan (1) Non-ST elevation PR (NSTEMI): Code(s): I21.4 - Non-ST elevation (NSTEMI) myocardial infarction Status: Acute Assessment and Plan: S/p coronary angiogram and PCI. He was found to have two vessel coronary artery disease, subtotal occlusion of the proximal circumflex which was the culprit lesion. Patient also has moderate stenosis in the 2nd portion of the RCA. Successful treatment of the subtotal circumflex lesion using the 2.75 x 22 mm drug-eluting stent Continue DAPT with ASA and Plavix without interruption for one year Continue losartan, metoprolol Continue aggressive risk factor modification for CAD Smoking cessation. He would like to use nicotine patches to support smoking cessation on discharge. Echo is pending OK for discharge home today (2) Dyslipidemia: Code(s): E78.5 - Hyperlipidemia, unspecified Status: Acute Assessment and Plan: Continue statin (3) Human immunodeficiency virus: Onset Date: 2003 Code(s): B20 - Human immunodeficiency virus [HIV] disease Status: Acute Assessment and Plan: Followed at [facility] (4) Chronic obstructive pulmonary disease: Code(s): J44.9 - Chronic obstructive pulmonary disease, unspecified Status: Acute Assessment and Plan: Related to tobacco use (5) Nicotine dependence: Code(s): F17.200 - Nicotine dependence, unspecified, uncomplicated Status: Chronic Assessment and Plan: Smoking cessation counseling performed (6) Renal insufficiency: Code(s): N28.9 - Disorder of kidney and ureter, unspecified Status: Acute Assessment and Plan: Normalized creatinine today Subjective Date/time seen: 07/19/22 11:06 Cardiology follow up for CAD, NSTEMI Interval history: Patient is feeling well this morning s/p PCI yesterday. No chest pain, shortness of breath, palpitations. He does complain of some lower back pain which is chronic from DDD/disc herniation. Review of Systems Review of Systems: All systems reviewed & are unremarkable except as noted in HPI and below Constitutional: Constitutional: Denies body ache(s) and Denies excessive sweating Eyes: Eyes: Denies blurry vision ENT: Reports Normal hearing present Cardiovascular: Cardiovascular: Reports chest pain Respiratory: Respiratory: Denies chest congestion Gastrointestinal: Gastrointestinal: Denies abdominal pain Genitourinary: Genitourinary: Denies hematuria Musculoskeletal: Musculoskeletal: Denies abnormal gait and Denies back pain Integumentary/Breasts: Skin/Breast: Denies erythema and Denies skin pain Neurologic: Reports Normal hearing present and Denies abnormal gait Psychiatric: Psychiatric: Reports anxiety and Reports depression Endocrine: Endocrine: Denies excessive sweating Hematologic/Lymphatic: Hematologic/Lymphatic: Denies easy bleeding Allergic/Immunologic: Allergic/Immunologic: Denies GI upset with certain foods Exam Narrative: Patient awake alert oriented appears to be in no acute distress. Appears stated age Const: General: comfortable and no acute distress HENMT: Face/Nose/Sinus: Normal nares present Mouth: Yes moist mucous membranes Eyes: Sclera: sclerae normal EOM: EOMs intact bilaterally Neck: Neck: supple and No no JVD Thyroid: thyroid normal Carotids: no bruits Chest: Other: No reproducible chest wall pain to palpation Resp: Effort & Inspection: normal respiratory effort Auscultation: clear to auscultation bilaterally Cardio: Rate: regular rate Rhythm: regular rhythm Heart sounds: no murmurs GI: Inspection: non-distended Auscultation: normal bowel sounds Skin: General skin exam: normal color Other: L femoral arterial access site free from bleeding, hematoma, pain. Neuro: Cranial nerves: Yes Normal hearing present Speech: normal speech Motor exam (neuro): 5/5 motor strength present througho
--- NOTE | 2022-07-19 12:26 | PM.DS ---
DS: Admitting Diagnosis Discharge Date 07/19/2022 Admitting Diagnosis Chest pain DS: Discharge Diagnosis Discharge Diagnosis (1) Non-ST elevation RI (NSTEMI): Code(s): I21.4 - Non-ST elevation (NSTEMI) myocardial infarction Status: Acute (2) Renal insufficiency: Code(s): N28.9 - Disorder of kidney and ureter, unspecified Status: Acute (3) Dyslipidemia: Code(s): E78.5 - Hyperlipidemia, unspecified Status: Acute (4) Human immunodeficiency virus: Onset Date: 2003 Code(s): B20 - Human immunodeficiency virus [HIV] disease Status: Acute (5) Depression with anxiety: Code(s): F41.8 - Other specified anxiety disorders Status: Acute (6) Chronic obstructive pulmonary disease: Code(s): J44.9 - Chronic obstructive pulmonary disease, unspecified Status: Acute (7) Nicotine dependence: Code(s): F17.200 - Nicotine dependence, unspecified, uncomplicated Status: Chronic DS: Summary Hospital Course Hospital Course: ?Patient with COPD hypertension hyperlipidemia anxiety depression HIV history of kidney stones presented with non ST-elevation RI associated chest pain radiate to the neck and jaw.? Stress test done 2 days ago prior to the admission however has not received the results yet.? Initial troponin was negative however the subsequent level trended up leading to the diagnosis of non ST-elevation RI.? Aspirin 325 mg started along with metoprolol and heparin drip was started.? EKG with ST depression in anterolateral and inferior leads.? Cardiology was consulted.? Hypertension control with losartan added to metoprolol.? Rosuvastatin check LDL is 79.? [facility]s [facility] disease.? Smoking cessation emphasized.? Chest x-ray with no acute cardiopulmonary disease.? Cardiac catheterization on 07/18/2022: Right coronary dominant circulation with 2 vessel coronary artery disease subtotal occlusion of proximal circumflex and moderate stenosis in the 2nd portion of RCA.? Circumflex lesion treated with stent placement.? Aspirin Plavix.? Statin and beta-princess. Stable post cardiac catheterization and stent placement. He will be discharged home. Continue to follow-up with PCP and vise hand. Time Spent with Patient Time attestation: Total time spent providing and/or coordinating discharge services: 35 minutes Exam Narrative: General: A well-developed, nontoxic-appearing male supine in bed. HEENT: Normocephalic, atraumatic. PERRL, EOMI. Sclera anicteric. Oral mucosa moist. Neck: Supple. Nontender Respiratory: Lungs are clear to auscultation bilaterally. No respiratory distress Cardiovascular: Regular rate and rhythm with S1-S2. Chest: No tenderness to palpation over the chest wall. Gastrointestinal: Abdomen is soft, flat, nontender, and nondistended with positive bowel sounds. Skin: Warm and dry. No rash or lesions on limited exam. Extremities: No cyanosis, clubbing, or edema. Radial and pedal pulses intact. Neurological: Alert. Cranial nerves 2-12 are grossly intact. No gross focal deficits to casual conversation. Psychiatric: Pleasant and cooperative with normal mood. Slightly anxious. Judgment and insight intact. DS: Data Data Completed and Pending Labs on day of discharge: Labs from last 24 hours 07/19/22 04:48 WBC 9.1 RBC 4.29 L Hgb 15.2 Hct 44.9 MCV 104.7 H MCH 35.4 H MCHC 33.9 RDW 12.8 Plt Count 149 L MPV 10.0 Immature Gran % (Auto) 0.3 Neut % (Auto) 64.1 Lymph % (Auto) 23.4 Sunflower % (Auto) 8.4 Eos % (Auto) 3.5 Baso % (Auto) 0.3 Lymph # (Auto) 2.13 Sunflower # (Auto) 0.8 H Eos # (Auto) 0.3 Baso # (Auto) 0.0 Abs Immat Gran (auto) 0.03 Absolute Neuts (auto) 5.8 Absolute Nucleated RBC 0.0 Nucleated RBC % 0.0 APTT 29.8 Sodium 139 Potassium 4.0 Chloride 107 Carbon Dioxide 28 Anion Gap 4 L BUN 13 Creatinine 0.90 Estim Creat Clear Calc 74 Estimated GFR > 60 Glucose 102 Calciu
--- NOTE | 2022-07-19 13:20 | PC.NURSE ---
pci card given to pt at discharge- D/John home- pt verbalized understanding of instructions and medications
== END 2022-07-19 13:20 | disposition home or self-care (01) | DRG 247 ==
PROVIDERS: Physician Assistant; Specialist; Admitting Provider Internal Medicine; PCP Family Medicine; Referring Provider Internal Medicine Cardiovascular Disease; Visit Provider Internal Medicine
PROC: 4A023N7 Measurement of Cardiac Sampling and Pressure, Left Heart, Percutaneous Approach (ICD-10-PCS; CPT 93452; principal; 2022-07-18 09:00)
PROC: 027034Z Dilation of Coronary Artery, One Artery with Drug-eluting Intraluminal Device, Percutaneous Approach (ICD-10-PCS; CPT 92928; 2022-07-18 09:00)
DX: I21.4 Non-ST elevation (NSTEMI) myocardial infarction (principal); B20 Human immunodeficiency virus [HIV] disease; I25.10 Atherosclerotic heart disease of native coronary artery without angina pectoris; N28.9 Disorder of kidney and ureter, unspecified; E78.5 Hyperlipidemia, unspecified; F41.8 Other specified anxiety disorders; J44.9 Chronic obstructive pulmonary disease, unspecified; I10 Essential (primary) hypertension; Z96.641 Presence of right artificial hip joint; Z87.442 Personal history of urinary calculi; F17.210 Nicotine dependence, cigarettes, uncomplicated
CPT/HCPCS: 36415; 80053; 80061; 82607; 82746; 83735; 84443; 84484; 85025; 85610; 85730; 93005; 93458; 96365; 96366; A9270; C1725; C1769; C1874; C1887; C1894; C9600; G0378; G0379; J0583; J1644; J2250; J3010; J7030; J7040

== ENCOUNTER 2024-01-29 07:32 | Outpatient (CLI) | payer MEDICARE, MEDICAID, SELFPAY ==
--- NOTE | ~2024-01-29 | CT_ITS ---
CT Scan of the Chest without Contrast: Clinical Indication: Lung cancer screening, nicotine dependence Technique: Contiguous sections were acquired throughout the chest without intravenous contrast. Dose reduction technique was used on this scan by utilizing automated exposure control and iterative recon struction technique. The dose-length product (DLP) was 75.83 mGy-cm. Findings: There is no evidence of any significant mediastinal, hilar or axillary lymphadenopathy. Coronary nilton ry calcifications are present. There is no evidence of pleural or pericardial effusion. The lungs are clear. No pulmonary nodules or infiltrates are noted. Images through the upper abdomen reveal no abnormalities. Impression: Lung RADS 1: Negative. 12 month follow-up screening CT advised. Reviewed, dictated and finalized at location . T PARTNER Impression: Lung RADS 1: Negative. 12 month follow-up screening CT advised.
--- NOTE | ~2024-01-29 | US_ITS ---
EXAMINATION: US aorta [facility] DATE: 01/29/2024 08:15 INDICATION: Abdominal aortic aneurysm screening TECHNIQUE: Grayscale, color Doppler, and pulsed Doppler images of the aorta and common iliac arteries were obtained. COMPARISON: None. FINDINGS: The proximal aorta measures 2.2 cm. The mid aorta measures 1.8 cm. The distal aorta measures 2.0 cm. The right common iliac artery measures 0.9 cm. The left common iliac artery measures 1.0 cm. IMPRESSION: 1. 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
== END 2024-01-29 07:33 | disposition home or self-care (01) ==
PROVIDERS: PCP Family Medicine; Visit Provider Family Medicine
DX: Z12.2 Encounter for screening for malignant neoplasm of respiratory organs (principal); Z13.6 Encounter for screening for cardiovascular disorders; Z87.891 Personal history of nicotine dependence
CPT/HCPCS: 71271; 76706